=== PATIENT | female | born 1935 | race Caucasian/White ===

== ENCOUNTER 2016-09-16 12:27 | Inpatient (IN) | payer MEDICARE, BC ==
[2016-09-16] MEDS ORDERED: NITROGLYCERIN SL TABS 0.4 MG TAB SUBLINGUAL PRN (14:42)
[2016-09-16] MEDS ORDERED: HEPARIN SODIUM,PORCINE/D5W PMX 25,000 UNIT in DEXTROSE/WATER 1 500ML.BAG IV SCH (14:45)
--- NOTE | 2016-09-16 15:12 | P.HPIM ---
History of Present Illness Patient is a pleasant 81-year-old female with known history of hypertension and remote history of smoking came in with complaints of chest pressure-like sensation and shortness of breath started last night lasted for 3 hours until she was seen in [facility] and was given IV nitroglycerin and heparin, her chest pain is moderate pressure like sensation not associated diaphoresis associated shortness of breath nonradiating in the substernal area and across the chest nonpruritic in nature, not associated with food completely resolved now. Patient had an EKG which showed left bundle branch block and a negative troponin and I do not have any other EKG to compare with Will opt another EKG here patient had BNP of 350 and chronic interstitial lung changes were seen on the chest x-ray, patient denied any COPD as an have any wheeze on exam area patient had minimally elevated d-dimer although patient doesn't have any symptomatology continued consistent with pulmonary embolism. Patient denied any fevers. Patient also has sinusitis symptoms. Patient has a low-grade fever here. Patient was complaning of dry cough. Review of Systems REVIEW OF SYSTEMS: CONSTITUTIONAL: No fever, no malaise, no fatigue. HEENT: No recent visual problems or hearing problems. Denied any sore throat. CARDIOVASCULAR: No orthopnea, PND, no palpitations, no syncope. PULMONARY: no hemoptysis. GASTROINTESTINAL: No diarrhea, no nausea, no vomiting, no abdominal pain. Normoactive bowel sounds. NEUROLOGICAL: No headaches, no weakness, no numbness. HEMATOLOGICAL: Denies any bleeding or petechiae. GENITOURINARY: Denies any burning micturition, frequency, or urgency. MUSCULOSKELETAL/RHEUMATOLOGICAL: Denies any joint pain, swelling, or any muscle pain. ENDOCRINE: Denies any polyuria or polydipsia. The rest of the 14-point review of systems is negative. Physical Exam PHYSICAL EXAMINATION: GENERAL: The patient is alert and oriented x3, not in any acute distress. Well developed, well nourished. HEENT: Pupils are round and equally reacting to light. EOMI. No scleral icterus. No conjunctival pallor. Normocephalic, atraumatic. No pharyngeal erythema. No thyromegaly. CARDIOVASCULAR: S1 and S2 present. No murmurs, rubs, or gallops. PULMONARY: Chest is clear to auscultation, no wheezing or crackles. ABDOMEN: Soft, nontender, nondistended, normoactive bowel sounds. No palpable organomegaly. MUSCULOSKELETAL: No joint swelling or deformity. EXTREMITIES: No cyanosis, clubbing, or pedal edema. NEUROLOGICAL: Gross neurological examination did not reveal any focal deficits. SKIN: No rashes. Assessment and Plan Plan: 1 chest pain, rule out acute coronary syndromes: Considering her EKG findings findings I consulted cardiology and did discuss case with cardiology and is practitioner, will continue patient will continued on IV heparin until we get the next set of troponins, we'll obtain another EKG, basic metabolic profile testing will be done. Patient doesn't have any leukocytosis. After evaluation by cardiology and if they do not believe this is related to acute coronary syndromes will obtain a CT of the chest rule out any pulmonary embolism., Although my suspicion is low for that. We'll continue with IV heparin and nitro patch. Echocardiogram will be obtained #2 shortness of breath etiology is unclear can be related to acute by coronary syndromes, after that rule out PE as mentioned above. #3 hypertension 4 ALLERGIC sinusitis
[2016-09-16 15:38] LABS: Basophils % (A) 1 %; CH 30.6; CHCM 33.9; Eosinophils % (A) 1 %; HCT 39.5 % (34.0-46.0); HDW 2.45; HGB 13.6 gm/dL (11.4-16.0); Luc # (Auto) 0.13; Luc % (Auto) 2; Lymphocytes # (A) 0.5 k/uL (1.0-4.8); Lymphocytes % (A) 9 %; MCH 31.3 pg (25.0-35.0); MCHC 34.5 g/dL (31.0-37.0); MCV 90.8 fL (80.0-100.0); Mean Platelet Volume 7.1; Monocytes # (A) 0.4 k/uL (0-1.0); Monocytes % (A) 6 %; Neutrophils # (A) 4.9 k/uL (1.3-7.7); Neutrophils % (A) 82 %; RBC 4.35 m/uL (3.80-5.40); RDW 14.5 % (11.5-15.5); WBC (Perox) 6.22
--- NOTE | 2016-09-16 15:50 | XR ---
EXAMINATION TYPE: XR chest 1V DATE OF EXAM: 09/16/2016 COMPARISON: NONE INDICATION: CHF cough and congestion TECHNIQUE: Single frontal view of the chest is obtained. FINDINGS: The heart size is normal. The pulmonary vasculature is normal. No suspicious infiltrates are evident. EKG leads overlie the chest. Some degenerative changes at the right shoulder. IMPRESSION: 1. No acute pulmonary process.
[2016-09-16 16:12] LABS: Troponin I 0.034 ng/mL (0.000-0.034)
[2016-09-16 16:18] LABS: ALT 28 U/L (9-52); AST 24 U/L (14-36); Alkaline Phosphatase 93 U/L (38-126); Anion Gap 12 mmol/L; Blood Urea Nitrogen 16 mg/dL (7-17); Calcium 9.2 mg/dL (8.4-10.2); Carbon Dioxide 25 mmol/L (22-30); Chloride 101 mmol/L (98-107); Glucose 132 mg/dL (74-99); Non-African American GFR(MDRD) >60 (>60 ml/min/1.73 sqM); Potassium 4.3 mmol/L (3.5-5.1); Sodium 138 mmol/L (137-145); Total Bilirubin 0.7 mg/dL (0.2-1.3); Total Protein 6.7 g/dL (6.3-8.2)
[2016-09-16] MEDS: NITROGLYCERIN OINT 1 INCH/GM PACKET TOPICAL SCH ×2 (17:03→22:47)
[2016-09-16] MEDS: ATORVASTATIN 40 MG TAB PO SCH ×2 (21:07→21:08)
[2016-09-16] MEDS ORDERED: ONDANSETRON 4 MG/2 ML VIAL IVP PRN (21:12)
[2016-09-16 21:17] LABS: Creatine Kinase MB 0.7 ng/mL (0.0-2.4); Troponin I 0.028 ng/mL (0.000-0.034)
[2016-09-16] MEDS ORDERED: HEPARIN SODIUM,PORCINE 5,000 UNIT/ML 1 ML VIAL IV PRN (22:13)
[2016-09-17] MEDS ORDERED: ACETAMINOPHEN TAB 325 MG TAB PO PRN (00:19)
[2016-09-17 02:08] LABS: Appearance,Urine Cloudy (Clear); Bilirubin,Urine Negative (Negative); Glucose,Urine (UA) Negative (Negative); Ketones,Urine Negative (Negative); Leukocyte Esterase,Urine Negative (Negative); Mucus,Urine Rare /hpf; Nitrite,Urine Negative (Negative); PH, Urine 5.5 (5.0-8.0); Particle Count 4556; Protein,Urine 1+ (Negative); RBC,Urine 3 /hpf (0-5); Specific Gravity,Urine 1.022 (1.001-1.035); Squamous Epithelial Cell,Urine 2 /hpf (0-4); UA Billing (MACRO vs. MICRO) MICRO; Urobilinogen,Urine <2.0 mg/dL (<2.0); WBC,Urine 1 /hpf (0-5)
[2016-09-17 05:56] LABS: Basophils % (A) 0 %; CH 29.7; CHCM 33.3; Eosinophils % (A) 0 %; HCT 34.5 % (34.0-46.0); HDW 2.58; HGB 11.7 gm/dL (11.4-16.0); Luc # (Auto) 0.17; Luc % (Auto) 3; Lymphocytes # (A) 0.5 k/uL (1.0-4.8); Lymphocytes % (A) 8 %; MCH 30.3 pg (25.0-35.0); MCHC 33.9 g/dL (31.0-37.0); MCV 89.6 fL (80.0-100.0); Mean Platelet Volume 6.7; Monocytes # (A) 0.3 k/uL (0-1.0); Monocytes % (A) 5 %; Neutrophils # (A) 5.1 k/uL (1.3-7.7); Neutrophils % (A) 84 %; RBC 3.86 m/uL (3.80-5.40); RDW 13.3 % (11.5-15.5); WBC 6.1 k/uL (3.8-10.6); WBC (Perox) 6.37
[2016-09-17 06:13] LABS: Cholesterol 218 mg/dL (<200); HDL Cholesterol 48 mg/dL (40-60); Triglycerides 197 mg/dL (<150)
[2016-09-17] MEDS: NITROGLYCERIN OINT 1 INCH/GM PACKET TOPICAL SCH ×4 (06:33→23:01)
--- NOTE | 2016-09-17 08:14 | XR ---
EXAMINATION TYPE: XR chest 2V DATE OF EXAM: 09/17/2016 COMPARISON: 09/16/2016 HISTORY: Shortness of breath TECHNIQUE: Frontal and lateral views of the chest are obtained. FINDINGS: Scattered senescent parenchymal changes noted. Hyperinflation compatible with COPD. No evidence for infiltrate. No evidence for atelectasis. Heart size is stable. Mediastinal structures are stable and grossly unremarkable. No evidence for hilar prominence. Degenerative changes dorsal spine. IMPRESSION: 1. No evidence for acute pulmonary disease.
[2016-09-17] MEDS ORDERED: ASPIRIN 325 MG TAB PO SCH (09:00)
[2016-09-17] MEDS ORDERED: RX INFO: IV CONTRAST WAS GIVEN 1 EACH MISC MISCELLANE PRN ×2 (09:35→23:46)
[2016-09-17] MEDS ORDERED: HYDROmorphone 1 MG/ML 1 ML SYRINGE IVP PRN (09:50)
[2016-09-17] MEDS: IPRATROPIUM-ALBUTEROL 3 ML NEB INHALATION SCH ×3 (09:58→19:52)
--- NOTE | 2016-09-17 09:58 | CONS ---
CHIEF COMPLAINT: Cough, shortness of breath and lower abdominal discomfort. This is an 81 year old lady comes in to the hospital with symptoms of recurrent cough, shortness of breath and sputum. This has been going on for the last several days. She had chest pressure and felt unwell for about three hours prior to coming to the hospital. She is sent in with a diagnosis of unstable angina. Her EKG shows sinus rhythm with left bundle branch block. Troponins have been negative. She has elevated D. dimer. At the time of my evaluation, she is much better and her predominant symptom is left lower quadrant discomfort probably related to recurrent coughing. Chest x-ray did not reveal any pulmonary disease. The patient will have a CT to rule out pulmonary embolism. Cardiac enzymes have been negative. BNP is normal at 364. Past medical history is significant for hypertension, hyperthyroidism. Medications include: 1. [place]-3. 2. Synthroid. 3. Norvasc. 4. Vitamin D. ALLERGIES: There are no known drug allergies. Family history is negative for premature coronary artery disease. Social history is significant for smoking that she quit a few years ago. Review of systems: HEENT: Unremarkable. Cardiac as described above. Respiratory as described above. GI significant for left lower quadrant pain. : Negative. Musculoskeletal significant for arthritis. Psych/social: Negative. Endocrine: Negative. Dermatological: Negative. Constitutional: Negative. Oncological: Negative. The rest of the system review is not relevant. On exam, comfortable at rest. Her T-max is 101. Heart rate is 94 beats a minute. Blood pressure is 140/54. Respiratory rate is 18. O2 sat is 96% on 2 L. There is no jugular venous distention. Carotid upstroke is normal. There is no bruit. Chest exam reveals bilateral rhonchi. Heart exam first and second heart sounds. No gallop. Has a systolic murmur in the left lower sternal border. Abdomen is soft, nontender. Examination of the extremities did not reveal any edema. Peripheral pulses are felt. ASSESSMENT: 1. Acute bronchitis. 2. Chest pain, myocardial infarction ruled out. 3. Elevated D. dimer. PLAN: The patient is looking better. I am going to stop the IV heparin. I will obtain a CT chest to rule out pulmonary embolism. I will give her breathing treatments, obtain a 2 D echo to document her LV function. When her respiratory status stabilizes, she will be discharged home and will have an outpatient stress test. I am going to follow her with you throughout this hospitalization. NATALI
--- NOTE | 2016-09-17 10:58 | ECHOF ---
Referral Reason:ACS MEASUREMENTS -------- HEIGHT: 160.0 cm WEIGHT: 78.5 kg BP: RVIDd: 2.0 cm (< 3.3) IVSd: 1.1 cm (0.6 - 1.1) LVIDd: 5.0 cm (3.9 - 5.3) LVPWd: 1.2 cm (0.6 - 1.1) IVSs: 1.7 cm LVIDs: 3.5 cm LVPWs: 1.6 cm LA Diam: 3.9 cm (2.7 - 3.8) LAESV Index (A-L): 35.26 ml/m Ao Diam: 3.0 cm (2.0 - 3.7) AV Cusp: 1.8 cm (1.5 - 2.6) MV EXCURSION: 10.412 mm (> 18.000) MV EF SLOPE: 60 mm/s (70 - 150) EPSS: 0.9 cm MV E Shady: 0.84 m/s MV DecT: 126 ms MV A Shady: 1.38 m/s MV E/A Ratio: 0.61 AV maxP.64 mmHg AV meanP.75 mmHg RAP: 5.00 mmHg RVSP: 41.07 mmHg FINDINGS -------- Sinus rhythm. This was a technically difficult study with suboptimal parasternal views. The left ventricular size is normal. There is borderline concentric left ventricular hypertrophy. Overall left ventricular systolic function is normal with, an EF between 55 - 60 %. The right ventricle is normal in size. LA is moderately dilated 34-39 ml/m2 The right atrium is normal in size. Aortic valve is trileaflet and is moderately thickened. There is mild aortic stenosis present. Peak/mean gradient across the Aortic Valve is 27.64mmHg / 17.75mmHg. Moderate mitral annular calcification present. Tdwzoyhp-[id number]-[id number] mitral regurgitation is present. Mild tricuspid regurgitation present. There is no pulmonic regurgitation present. The aortic root size is normal. Normal inferior vena cava with normal inspiratory collapse consistent with estimated right atrial pressure of 5 mmHg. There is no pericardial effusion. CONCLUSIONS -------- 1. Sinus rhythm. 2. Jggkzpjd-mj-hjofsr mitral regurgitation is present. 3. Mild tricuspid regurgitation present. 4. There is no pulmonic regurgitation present. 5. The aortic root size is normal. 6. Normal inferior vena cava with normal inspiratory collapse consistent with estimated right atrial pressure of 5 mmHg. 7. There is no pericardial effusion. 8. This was a technically difficult study with suboptimal parasternal views. 9. There is borderline concentric left ventricular hypertrophy. 10. Overall left ventricular systolic function is normal with, an EF between 55 - 60 %. 11. LA is moderately dilated 34-39 ml/m2 12. Aortic valve is trileaflet and is moderately thickened. 13. There is mild aortic stenosis present. 14. Peak/mean gradient across the Aortic Valve is 27.64mmHg / 17.75mmHg. 15. Moderate mitral annular calcification present. LEAD QUALITY CONTROL TECHNICIAN: Perla Byrd RDCS
--- NOTE | 2016-09-17 11:05 | CT ---
EXAMINATION TYPE: CT angio chest DATE OF EXAM: 09/17/2016 COMPARISON: NONE HISTORY: PE, elevated d dimer CT DLP: 844.6 mGycm CONTRAST: CT chest with contrast and 3D reconstruction with MIP imaging is performed with IV Contrast, patient injected with 125 mL of Omnipaque 350. Contrast-enhanced CT of the chest was performed through the course of the pulmonary arteries with katerina g and mediastinal window settings submitted. 3D reconstruction with MIP imaging was also performed. PULMONARY ARTERIES: The pulmonary arteries and their major tributaries are patent. I do not see carlton dence for sizable filling defect to suggest pulmonary embolic process. LUNGS: The lungs are clear and free of infiltrate. No evidence for atelectasis. No pulmonary nodule or mass is detected. No pleural effusion. MEDIASTINUM: Thoracic aorta is of normal caliber . The heart is mildly enlarged. No evidence for me diastinal mass. No mediastinal lymph nodes greater than 1cm. HILAR STRUCTURES: No evidence for mass. No hilar lymph nodes greater than 1 cm. UPPER ABDOMEN: No significant abnormality is seen. IMPRESSION: 1. No evidence for Pulmonary embolism at this time.
[2016-09-17] MEDS ORDERED: HYDROmorphone 1 MG/ML 1 ML SYRINGE IVP STA (11:21)
--- NOTE | 2016-09-17 11:45 | CT ---
EXAMINATION TYPE: CT angio thoracic/abd aorta DATE OF EXAM: 09/17/2016 COMPARISON: NONE HISTORY: LLQ pain, known AAA CT DLP: 1377 mGycm CONTRAST: CTA thoracic and abdominal aorta with 3-D reconstruction is performed and without and with IV Contras t, patient injected with 125 mL of Omnipaque 350. Contrast CTA of the thoracic and abdominal aorta was performed from the lung apex through the base of the pelvis. 3-D reconstruction imaging obtained at a separate workstation. CT Chest: THORACIC AORTA: There is no evidence for aneurysm. No dissection or mediastinal hematoma. Mild ath eromatous changes are seen. LUNGS: The lungs are clear and free of infiltrate or atelectasis. No pulmonary nodule or mass is det ected. No pleural effusion or CT evidence of interstitial lung disease. MEDIASTINUM: The heart is not enlarged. No evidence for mediastinal mass or adenopathy. HILAR STRUCTURES: No evidence for mass. No hilar adenopathy is appreciated. OTHER: No significant abnormality. CONTRAST CT ABDOMEN AND PELVIS ABDOMINAL AORTA: MILD INFRARENAL ABDOMINAL AORTIC ANEURYSM MEASURES 3.1 CM. ATHEROMATOUS CHANGES SEEN . BRANCH VESSELS ARE PATENT AT THIS TIME. No dissection. Iliac vessels are symmetric and patent. LIVER/GB-soft gallstone versus polyp noted. Mild fatty liver.The liver is unremarkable otherwise. PANCREAS- No significant abnormality is seen. SPLEEN- No significant abnormality is seen. ADRENALS- No significant abnormality is seen. KIDNEYS/BLADDER- No significant abnormality is seen. BOWEL- No Significant abnormality GENITAL ORGANS: No gross abnormality seen. LYMPH NODES- No greater than 1cm abdominal or pelvic lymph nodes areappreciated. OSSEOUS STRUCTURES- No significant abnormality is seen. OTHER-there is a large hemorrhage noted to involve the left lateral abdominal wall musculature which extends 21.4 cm craniocaudal dimension. Its lateral component is partially cut off the [id number]. Mild enhancement is noted within the hemorrhage on the postcontrast portion of the study. IMPRESSION- 1.large hemorrhage noted to involve the left lateral abdominal wall musculature which extends 21.4 cm craniocaudal dimension. Its lateral component is partially cut off the [id number] but measures at least 6.8 cm in transverse dimension. 2.. Mild intra-abdominal aortic aneurysm. No evidence for dissection. Thoracic aorta is of normal michelle iber. 3. Soft gallstone versus polyp.
[2016-09-17 12:49] LABS: Basophils % (A) 0 %; CH 30.6; CHCM 33.9; Eosinophils % (A) 0 %; HCT 30.4 % (34.0-46.0); HDW 2.64; HGB 10.3 gm/dL (11.4-16.0); Luc % (Auto) 1; Lymphocytes # (A) 0.4 k/uL (1.0-4.8); Lymphocytes % (A) 6 %; MCH 30.7 pg (25.0-35.0); MCHC 33.9 g/dL (31.0-37.0); MCV 90.4 fL (80.0-100.0); Mean Platelet Volume 7.3; Monocytes # (A) 0.2 k/uL (0-1.0); Monocytes % (A) 3 %; Neutrophils # (A) 6.5 k/uL (1.3-7.7); Neutrophils % (A) 90 %; RBC 3.36 m/uL (3.80-5.40); RDW 13.8 % (11.5-15.5); WBC 7.3 k/uL (3.8-10.6); WBC (Perox) 7.65
--- NOTE | 2016-09-17 12:57 | CONS ---
ADDENDUM: This is an 81 year old lady who was transferred from [place] following her initial presentation there with symptoms of cough, shortness of breath and was sent in with unstable angina. The patient had a CT scan of the chest that was negative for pulmonary embolism. She was complaining of left lower quadrant discomfort that I initially thought was related to sprain within the abdominal wall muscle with recurrent cough. however, this discomfort has worsened and extended. A CT scan shows abdominal wall hematoma. The patient's heparin was stopped after my initial evaluation. The patient currently is symptomatic therapy. I am going to stop the subcu heparin also at this time. The patient had a CT scan of the thoracic aorta that showed mild intraabdominal aortic aneurysm but a large lateral abdominal wall hematoma that measures about [address] [facility] [place]
[2016-09-17] MEDS ORDERED: traMADol 50 MG TAB PO SCH (13:00)
[2016-09-17] MEDS: HYDROcodone/APAP 5-325MG 1 EACH TAB PO PRN ×2 (13:04→19:23)
--- NOTE | 2016-09-17 15:42 | P.GSCN ---
History of Present Illness Consult date: 09/17/16 Reason for Consult: Left flank hematoma Requesting physician: Pablito Otoole History of present illness: 81 years old female presented with chest pain and shortness of breath from [facility] on 09/16/16. Differential diagnosis included pulmonary embolism and she was started on IV heparin . Patient experienced severe bout of cough and then noticed an expanding bruise in the left flank. She has some pain in the area which is mild. Denies any nausea or vomiting. She also has left lower quadrant pain, 5 out of 10, intermittent in nature. She had last bowel movement 2 days ago. She is passing flatus. Shortness of breath has now resolved. Patient lives by herself and uses cane and wheelchair for ambulation. CT chest and abdomen and pelvis with IV contrast performed. I reviewed the films. No evidence of PE. Large left flank hematoma which measures more than 20 cm. No active contrast extravasation seen. No compression of colon or adjacent organ seen Review of Systems Constitutional: Denies fever, weight loss or loss of appetite HEENT: No difficulty in vision , hearing. Denies dysphagia. Cardiovascular:Denies chest pain, palpitations, dizziness, shortness of breath. Respiratory: No cough. SOB resolved Gastrointestinal: No recent change in bowel habits, no abdominal pain, no nausea or vomiting. Last colonoscopy 10 yrs ago Integumentary: Multiple skin bruises Genitourinary: No urinary incontinence, hematuria or dysuria Neurologic: No seizures, denies weakness in upper or lower extremities Musculoskeletal: Has back and knee pain. Psychiatry: No history of depression, no suicidal ideation, no anxiety or psychosis Past Medical History Past Medical History: Cancer, GERD/Reflux, Hyperlipidemia, Hypertension, Sleep Apnea/CPAP/BIPAP, Thyroid Disorder Additional Past Medical History / Comment(s): shingles within last 5 years, "intermittent ankle swelling", AAA unsure of size, diverticular disease(had sx) , sleep apnea has cpap but does'nt use it. psoriases, "psoriatic arthritis", past fx's to lt armx2,lt hand,lt ankle all just casted. broken tail bone had sx. , past benign brain and ovarian tumors. 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 History of Any Multi-Drug Resistant Organisms: None Reported Past Surgical History: Bowel Resection, Hysterectomy, Tonsillectomy Additional Past Surgical History / Comment(s): brain and ovarian tumors removed both benign, rt hip replacements x4, nena cataracts,"rt eye sx for ?hole", multiple skin cancer lesions removed.,lt shoulder spurs removed, nena carpal tunnel. "approx 2002 after hip sx had staph infection but never told if it was mrsa or not" Past Anesthesia/Blood Transfusion Reactions: No Reported Reaction Smoking Status: Former smoker - Past Family History Father Family Medical History: Diabetes Mellitus, Myocardial Infarction ([place]) Additional Family Medical History / Comment(s): embollism- age 79 Mother Family Medical History: Diabetes Mellitus, Myocardial Infarction ([place]) Additional Family Medical History / Comment(s): age 74 Medications and Allergies Home Medications Medication Instructions Recorded Confirmed Type Cholecalciferol [Vitamin D3] 1,000 unit PO DAILY 09/16/16 09/16/16 History Levothyroxine Sodium [Synthroid] 175 mcg PO DAILY 09/16/16 09/16/16 History Magnesium 200 mg PO DAILY 09/16/16 09/16/16 History [place]-3 Fatty Acids [[place]-3] 1 cap PO DAILY 09/16/16 09/16/16 History amLODIPine [Norvasc] 2.5 mg PO DAILY 09/16/16 09/16/16 History Allergies Allergy/AdvReac Type Severity Reaction Status Date / Time No Known Allergies Allergy Unverified 09/16/16 15:34 Surgical - Exam Vital Signs Temp Pulse Resp BP Pulse Ox 98.9 F 99 18 170/76 97 09/16/16 15:00 09/16/16 15:00 09/16/16 15:00 09/16/16 15:00 09/16/16 15:00 General: Patient is alert and oriented to time, place and person and cooperative with exam. HEENT: No pallor, no icterus, no thyroid enlargement, no cervical lymphadenopathy. Chest: Bilateral equal breath sounds present. No wheezes, no crackles. Cardiovascular: Regular rate and rhythm. Abdomen: Soft, nondistended. Mild left lower quadrant tenderness. No peritonitis. Left flank ecchymosis. Areas marked. Integumentary: Ecchymosis in upper extremity. No active ulcers or discharge. Neurologic: Cranial nerves II-XII intact. Strength upper and lower extremities 5/5. No focal neurologic deficits. Psychiatric: No anxiety or psychosis. Results - Labs 09/17/16 12:14 09/16/16 15:17 Abnormal Lab Results - Last 24 Hours (Table) 09/16/16 09/16/16 09/16/16 Range/Units 15:17 15:17 15:17 RBC (3.80-5.40) m/uL Hgb (11.4-16.0) gm/dL Hct (34.0-46.0) % Lymphocytes # 0.5 L (1.0-4.8) k/uL APTT (22.0-30.0) sec Glucose 132 H (74-99) mg/dL Total Creatine Kinase 258 H (30-135) U/L Triglycerides (<150) mg/dL Cholesterol (<200) mg/dL LDL Cholesterol, Calc (0-99) mg/dL Urine Appearance (Clear) Urine Protein (Negative) Urine Blood (Negative) Urine Mucus (None) /hpf 09/16/16 09/17/16 09/17/16 Range/Units 20:35 01:50 05:31 RBC (3.80-5.40) m/uL Hgb (11.4-16.0) gm/dL Hct (34.0-46.0) % Lymphocytes # (1.0-4.8) k/uL APTT (22.0-30.0) sec Glucose (74-99) mg/dL Total Creatine Kinase 287 H (30-135) U/L Triglycerides 197 H (<150) mg/dL Cholesterol 218 H (<200) mg/dL LDL Cholesterol, Calc 131 H (0-99) mg/dL Urine Appearance Cloudy H (Clear) Urine Protein 1+ H (Negative) Urine Blood Moderate H (Negative) Urine Mucus Rare H (None) /hpf 09/17/16 09/17/16 09/17/16 Range/Units 05:31 05:31 12:14 RBC 3.36 L (3.80-5.40) m/uL Hgb 10.3 L (11.4-16.0) gm/dL Hct 30.4 L (34.0-46.0) % Lymphocytes # 0.5 L 0.4 L (1.0-4.8) k/uL APTT 62.5 H (22.0-30.0) sec Glucose (74-99) mg/dL Total Creatine Kinase (30-135) U/L Triglycerides (<150) mg/dL Cholesterol (<200) mg/dL LDL Cholesterol, Calc (0-99) mg/dL Urine Appearance (Clear) Urine Protein (Negative) Urine Blood (Negative) Urine Mucus (None) /hpf Microbiology - Last 24 Hours (Table) 09/17/16 01:50 Urine Culture - Preliminary Urine,Voided Diabetes panel 09/16/16 09/17/16 Range/Units 15:17 05:31 Sodium 138 (137-145) mmol/L Potassium 4.3 (3.5-5.1) mmol/L Chloride 101 (98-107) mmol/L Carbon Dioxide 25 (22-30) mmol/L BUN 16 (7-17) mg/dL Creatinine 0.80 (0.52-1.04) mg/dL Glucose 132 H (74-99) mg/dL Calcium 9.2 (8.4-10.2) mg/dL AST 24 (14-36) U/L ALT 28 (9-52) U/L Alkaline Phosphatase 93 (38-126) U/L Total Protein 6.7 (6.3-8.2) g/dL Albumin 3.9 (3.5-5.0) g/dL Triglycerides 197 H (<150) mg/dL HDL Cholesterol 48 (40-60) mg/dL Thyroid panel 09/16/16 Range/Units 15:17 TSH 2.860 (0.465-4.680) mIU/L Calcium panel 09/16/16 Range/Units 15:17 Calcium 9.2 (8.4-10.2) mg/dL Albumin 3.9 (3.5-5.0) g/dL Pituitary panel 09/16/16 Range/Units 15:17 Sodium 138 (137-145) mmol/L Potassium 4.3 (3.5-5.1) mmol/L Chloride 101 (98-107) mmol/L Carbon Dioxide 25 (22-30) mmol/L BUN 16 (7-17) mg/dL Creatinine 0.80 (0.52-1.04) mg/dL Glucose 132 H (74-99) mg/dL Calcium 9.2 (8.4-10.2) mg/dL TSH 2.860 (0.465-4.680) mIU/L Adrenal panel 09/16/16 Range/Units 15:17 Sodium 138 (137-145) mmol/L Potassium 4.3 (3.5-5.1) mmol/L Chloride 101 (98-107) mmol/L Carbon Dioxide 25 (22-30) mmol/L BUN 16 (7-17) mg/dL Creatinine 0.80 (0.52-1.04) mg/dL Glucose 132 H (74-99) mg/dL Calcium 9.2 (8.4-10.2) mg/dL Total Bilirubin 0.7 (0.2-1.3) mg/dL AST 24 (14-36) U/L ALT 28 (9-52) U/L Alkaline Phosphatase 93 (38-126) U/L Total Protein 6.7 (6.3-8.2) g/dL Albumin 3.9 (3.5-5.0) g/dL - Imaging CT scan - abdomen: image reviewed (Large left flank hematoma. No active extravasation seen.) CT scan - chest: image reviewed (No PE) Assessment and Plan (1) Hematoma of left flank Status: Acute (2) Hypertension Status: Acute (3) Hypothyroidism Status: Acute Plan: 1. Ok to start diet from surgical standpoint 2. No surgical intervention regarding the left flank hematoma. Most likely resulted from vigorous coughing and anticoagulation 3. Monitor Hb every 12 hrs . 4. Abdominal binder for support
--- NOTE | 2016-09-17 16:26 | P.PN ---
Subjective Date of service 09/17/2016. Progress note being dictated for Dr. Otoole Interval history: Patient is a pleasant 81-year-old female with known history of hypertension and remote history of smoking came in with complaints of chest pressure-like sensation and shortness of breath started last night lasted for 3 hours until she was seen in [facility] and was given IV nitroglycerin and heparin, her chest pain is moderate pressure like sensation not associated diaphoresis associated shortness of breath nonradiating in the substernal area and across the chest nonpruritic in nature, not associated with food completely resolved now. Patient had an EKG which showed left bundle branch block and a negative troponin and I do not have any other EKG to compare with Will opt another EKG here patient had BNP of 350 and chronic interstitial lung changes were seen on the chest x-ray, patient denied any COPD as an have any wheeze on exam area patient had minimally elevated d-dimer although patient doesn't have any symptomatology continued consistent with pulmonary embolism. Patient denied any fevers. Patient also has sinusitis symptoms. Patient has a low- grade fever here. Patient was complaning of dry cough. 09/17/2016: Breathing improving, CT negative for PE. Patient states had coughing spell and now complaining of abdominal pain, initially started with left groin, radiating up to under left rib cage accompanied by left flank bruise , tender. No nausea or vomiting. No diarrhea. Last bowel movement 2 days ago.Abdomen and Pelvis CT results Pending. Objective - Vital Signs Vital signs: Vital Signs Temp 98.3 F 09/17/16 08:40 Pulse 95 09/17/16 10:58 Resp 18 09/17/16 09:30 BP 169/72 09/17/16 10:58 Pulse Ox 92 L 09/17/16 09:30 Intake & Output 09/16/16 09/17/16 09/17/16 18:59 06:59 18:59 Intake Total 120 100.273 21.1 Output Total 150 Balance 120 -49.727 21.1 Weight 70.45 kg 77.5 kg Intake: Intake, IV Titration 100.273 21.1 Amount Heparin Sodium,Porcine/ 100.273 21.1 D5w Pmx 25,000 unit In Dextrose/Water 1 500ml. bag @ 12 UNITS/KG/HR 16.9 mls/hr IV .Q24H IVÁN Rx#: [id number] Oral 120 Output: Urine 150 Other: Voiding Method Toilet Toilet Toilet Bedside Commode Bedside Commode Bedside Commode # Voids 2 1 1 # Bowel Movements 0 - Exam GENERAL: Sitting up in bed, alert and oriented x3, tired appearing. HEENT: Pupils are round and equally reacting to light. EOMI. No scleral icterus. No conjunctival pallor. Normocephalic, atraumatic. No pharyngeal erythema. No thyromegaly. CARDIOVASCULAR: S1 and S2 present. No murmurs, rubs, or gallops. PULMONARY: Chest is clear to auscultation, no wheezing or crackles. ABDOMEN: Soft, tender left upper quadrant and left flank bruise, nondistended, normoactive bowel sounds. guarding left rib cage. MUSCULOSKELETAL: No joint swelling or deformity. EXTREMITIES: No cyanosis, clubbing, or pedal edema. NEUROLOGICAL: Gross neurological examination did not reveal any focal deficits. SKIN: No rashes. - Labs CBC & Chem 7: 09/17/16 12:14 09/16/16 15:17 Labs: Abnormal Lab Results - Last 24 Hours (Table) 09/16/16 09/16/16 09/16/16 Range/Units 15:17 15:17 15:17 Lymphocytes # 0.5 L (1.0-4.8) k/uL APTT (22.0-30.0) sec Glucose 132 H (74-99) mg/dL Total Creatine Kinase 258 H (30-135) U/L Triglycerides (<150) mg/dL Cholesterol (<200) mg/dL LDL Cholesterol, Calc (0-99) mg/dL Urine Appearance (Clear) Urine Protein (Negative) Urine Blood (Negative) Urine Mucus (None) /hpf 09/16/16 09/17/16 09/17/16 Range/Units 20:35 01:50 05:31 Lymphocytes # (1.0-4.8) k/uL APTT (22.0-30.0) sec Glucose (74-99) mg/dL Total Creatine Kinase 287 H (30-135) U/L Triglycerides 197 H (<150) mg/dL Cholesterol 218 H (<200) mg/dL LDL Cholesterol, Calc 131 H (0-99) mg/dL Urine Appearance Cloudy H (Clear) Urine Protein 1+ H (Negative) Urine Blood Moderate H (Negative) Urine Mucus Rare H (None) /hpf 09/17/16 09/17/16 Range/Units 05:31 05:31 Lymphocytes # 0.5 L (1.0-4.8) k/uL APTT 62.5 H (22.0-30.0) sec Glucose (74-99) mg/dL Total Creatine Kinase (30-135) U/L Triglycerides (<150) mg/dL Cholesterol (<200) mg/dL LDL Cholesterol, Calc (0-99) mg/dL Urine Appearance (Clear) Urine Protein (Negative) Urine Blood (Negative) Urine Mucus (None) /hpf Assessment and Plan Plan: 1 chest pain, rule out acute coronary syndrome #2 shortness of breath etiology unclear can be related to acute by coronary syndrome, rule out PE #3 hypertension 4 ALLERGIC sinusitis #5 new-onset left upper quadrant abdominal pain, CT results pending. Plan: Continue on current medication regime ,monitoring and symptomatic treatment. CT abdomen and pelvis pending. Surgical consult pending results of CT. Close monitoring of CBC, electrolytes with repeat labs ordered for a.m. Further recommendations to follow. The impression and plan of care has been dictated as directed as a scribe. : I performed a H&P examination of this patient and discussed the same with the dictator. I agree with the dictator's note. Any additional findings/opinions/ etc. will be noted.
[2016-09-17] MEDS ORDERED: traMADol 50 MG TAB PO PRN (17:18)
[2016-09-17] MEDS: ATORVASTATIN 40 MG TAB PO SCH (19:30)
[2016-09-17] MEDS ORDERED: HEPARIN SODIUM,PORCINE 5,000 UNIT/ML 1 ML VIAL SQ SCH (21:00)
[2016-09-17 23:17] LABS: Glucose,Whole Blood 284 mg/dL (75-99)
[2016-09-17] MEDS ORDERED: SODIUM CHLORIDE 0.9% 250 ML IV ONE (23:24)
[2016-09-17 23:25] VITALS: TEMP 97.5
[2016-09-17 23:36] LABS: Basophils % (A) 1 %; CH 30.6; Eosinophils % (A) 0 %; HCT 26.1 % (34.0-46.0); HGB 9.1 gm/dL (11.4-16.0); Luc # (Auto) 0.18; Luc % (Auto) 3; Lymphocytes # (A) 1.1 k/uL (1.0-4.8); Lymphocytes % (A) 19 %; MCH 31.5 pg (25.0-35.0); MCHC 34.8 g/dL (31.0-37.0); MCV 90.4 fL (80.0-100.0); Mean Platelet Volume 7.7; Monocytes # (A) 0.4 k/uL (0-1.0); Monocytes % (A) 7 %; Neutrophils # (A) 4.2 k/uL (1.3-7.7); Neutrophils % (A) 70 %; RBC 2.89 m/uL (3.80-5.40); RDW 13.9 % (11.5-15.5); WBC (Perox) 6.04
[2016-09-17 23:41] LABS: Prothrombin Time 9.9 sec (9.0-12.0)
[2016-09-17 23:43] LABS: Potassium 4.2 mmol/L (3.5-5.1); Total Bilirubin 0.5 mg/dL (0.2-1.3); Total Protein 5.3 g/dL (6.3-8.2)
[2016-09-18 00:34] VITALS: RESP 18
[2016-09-18 01:16] VITALS: BP 115/56; PULSE 93
--- NOTE | 2016-10-01 17:28 | P.DS ---
Providers Date of admission: 09/16/16 14:20 Attending physician: Pablito Otoole Consults: 09/16/16 14:43 Consult Physician Urgent Consulting Provider: Esvin Bryant Consult Reason/Comments: LBBB and chest pain Do you want consulting provider notified?: Yes 09/17/16 12:57 Consult Physician Urgent Consulting Provider: Marcia Orozco Consult Reason/Comments: Left abdominal hematoma Do you want consulting provider notified?: Yes Primary care physician: Stated None Hospital Course: Please refer to the progress note for further details patient had a large hematoma and patient was later evaluated by surgery and they recommended transfer to outside visiting and patient was subsequently transferred. Plan - Discharge Summary New Discharge Prescriptions: No Action Cholecalciferol [Vitamin D3] 1,000 unit PO DAILY amLODIPine [Norvasc] 2.5 mg PO DAILY Caney-3 Fatty Acids [Caney-3] 1 cap PO DAILY Magnesium 200 mg PO DAILY Levothyroxine Sodium [Synthroid] 175 mcg PO DAILY Discharge Medication List Cholecalciferol [Vitamin D3] 1,000 unit PO DAILY 09/16/16 [History] Levothyroxine Sodium [Synthroid] 175 mcg PO DAILY 09/16/16 [History] Magnesium 200 mg PO DAILY 09/16/16 [History] Caney-3 Fatty Acids [Caney-3] 1 cap PO DAILY 09/16/16 [History] amLODIPine [Norvasc] 2.5 mg PO DAILY 09/16/16 [History] Discharge Disposition: OTHER INSTITUTION NOT DEFINED
== END 2016-09-18 02:56 | disposition other institution (70) | DRG 313 ==
LOC: 6SEL 14:20
PROVIDERS: ADMIT Internal Medicine; ATTEND Internal Medicine
DX: R07.89 Other chest pain (principal); I44.7 Left bundle-branch block, unspecified; L40.50 Arthropathic psoriasis, unspecified; S30.1XXA Contusion of abdominal wall, initial encounter; J20.9 Acute bronchitis, unspecified; I10 Essential (primary) hypertension; E03.9 Hypothyroidism, unspecified; I71.4 Abdominal aortic aneurysm, without rupture; E78.5 Hyperlipidemia, unspecified; G47.30 Sleep apnea, unspecified; J30.9 Allergic rhinitis, unspecified; K21.9 Gastro-esophageal reflux disease without esophagitis; K57.90 Diverticulosis of intestine, part unspecified, without perforation or abscess without bleeding; Z87.891 Personal history of nicotine dependence; Z79.899 Other long term (current) drug therapy; Z85.828 Personal history of other malignant neoplasm of skin; Z82.49 Family history of ischemic heart disease and other diseases of the circulatory system
CPT/HCPCS: 71010; 71020; 71275; 75635; 80053; 80061; 81001; 82550; 82553; 84443; 84484; 85025; 85610; 85730; 87040; 87086; 93306; 94640; 94760

== ENCOUNTER 2016-10-06 19:05 | Inpatient (IN) | payer MEDICARE, BC ==
[2016-10-06] MEDS ORDERED: ACETAMINOPHEN TAB 325 MG TAB PO PRN (21:34)
[2016-10-06 22:05] VITALS: RESP 16; BMI 28.8
[2016-10-06] MEDS: NITROGLYCERIN OINT 1 INCH/GM PACKET TOPICAL SCH (23:51)
[2016-10-06] MEDS: SODIUM CHLORIDE 0.9% 1,000 ML IV SCH (23:52)
[2016-10-07 04:37] LABS: Anisocytosis Slight; Basophils % (A) 1 %; CH 29.8; CHCM 31.3; Eosinophils # (A) 0.1 k/uL (0-0.7); Eosinophils % (A) 2 %; HCT 24.9 % (34.0-46.0); HDW 3.68; HGB 7.9 gm/dL (11.4-16.0); Hypochromasia Moderate; Luc # (Auto) 0.08; Luc % (Auto) 2; Lymphocytes # (A) 0.8 k/uL (1.0-4.8); Lymphocytes % (A) 25 %; MCH 30.4 pg (25.0-35.0); MCHC 31.7 g/dL (31.0-37.0); Macrocytosis Slight; Mean Platelet Volume 8.4; Monocytes # (A) 0.3 k/uL (0-1.0); Monocytes % (A) 9 %; Neutrophils # (A) 2.1 k/uL (1.3-7.7); Neutrophils % (A) 61 %; Poikilocytosis Slight; RBC 2.59 m/uL (3.80-5.40); RDW 17.6 % (11.5-15.5); WBC 3.3 k/uL (3.8-10.6)
[2016-10-07 04:42] LABS: MCV 96.1 fL (80.0-100.0)
[2016-10-07 04:46] LABS: Anion Gap 4 mmol/L; Blood Urea Nitrogen 22 mg/dL (7-17); Calcium 8.1 mg/dL (8.4-10.2); Carbon Dioxide 28 mmol/L (22-30); Chloride 110 mmol/L (98-107); Glucose 117 mg/dL (74-99); Magnesium 1.7 mg/dL (1.6-2.3); Non-African American GFR(MDRD) 52 (>60 ml/min/1.73 sqM); Phosphorous 4.2 mg/dL (2.5-4.5); Potassium 3.7 mmol/L (3.5-5.1); Sodium 142 mmol/L (137-145)
[2016-10-07 04:49] LABS: Partial Thromboplastin Time 22.7 sec (22.0-30.0); Prothrombin Time 10.2 sec (9.0-12.0)
[2016-10-07] MEDS: NITROGLYCERIN OINT 1 INCH/GM PACKET TOPICAL SCH (06:32)
[2016-10-07] MEDS ORDERED: ASPIRIN 81 MG CHEW PO SCH (09:00)
--- NOTE | 2016-10-07 09:17 | P.CRDCN ---
History of Present Illness Consult date: 10/07/16 Requesting physician: Derrick Dimas Reason for Consult (text): Abnormal troponin Chief complaint: Shortness of breath History of present illness: This is a pleasant 81-year-old female with history of hypertension, hypothyroidism, she also has recent history of left-sided flank hematoma which developed in August of this year. She was in the hospital, was being anticoagulated for possible pulmonary embolism. She had a significant amount of coughing and developed a hematoma. She was transferred to [facility], received 5 units of blood transfusion, and was at [facility] for [facility]. Patient states that she became short of breath, and has been short of breath since that time with minimal exertion. She woke up the other morning and states she could hardly breathe at all, therefore went to [facility] for further evaluation. CAT scan of the chest was performed which did not reveal any significant findings. CT of the abdomen and pelvis was also performed which revealed subacute intramuscular hematoma in the left lateral abdominal wall measuring 4.1118.4. Left retroperitoneal hematoma extending from the lower pole of the left kidney to the mid left iliac wing just anterior to the left iliac as muscle. Patient also states she's been noticing significant blood in her urine. EKG performed there shows a normal sinus rhythm with a left bundle-branch block pattern and nonspecific ST-T wave changes. Patient was also found to have a temperature of 102. She did have an echocardiogram with Doppler study performed which revealed an ejection of 55-60% . Hemoglobin there was 10.0, hematocrit 30.2, BUN 18, creatinine 0.8, potassium 4.1. Urinalysis showed a large amount of blood in the urine. Repeat hemoglobin at [facility] 8.1. Troponin 0.418. Because of the abnormal troponin patient was transferred here to [facility] for further evaluation. EKG performed here showed a normal sinus rhythm with a left bundle-branch block pattern is nonspecific ST-T wave changes. EMILIA globin here 7.9, white blood cell count 3.3, platelet count 140. Potassium 3.7, BUN 22, creatinine 1.0. Troponins 0.5, 0.3. Magnesium 1.2. Blood pressure 126/70, heart rate in the 80s, 99% on room air. At the time of my examination this morning, her main complaint is that of feeling weak. She denies having any chest discomfort at any time. We will discontinue her Nitropaste. Patient did have an echocardiogram with Doppler study performed last month which revealed moderate to severe mitral regurgitation, ejection fraction 55-60%. Mild aortic stenosis. Past Medical History Past Medical History: Cancer, GERD/Reflux, Hyperlipidemia, Hypertension, Sleep Apnea/CPAP/BIPAP, Thyroid Disorder Additional Past Medical History / Comment(s): shingles within last 5 years, "intermittent ankle swelling", AAA unsure of size, diverticular disease(had sx) , sleep apnea has cpap but does'nt use it. psoriases, "psoriatic arthritis", past fx's to lt armx2,lt hand,lt ankle all just casted. broken tail bone had sx. , past benign brain and ovarian tumors. 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 retroperiteneal bleed. History of Any Multi-Drug Resistant Organisms: None Reported Past Surgical History: Bowel Resection, Hysterectomy, Tonsillectomy Additional Past Surgical History / Comment(s): brain and ovarian tumors removed both benign, rt hip replacements x4, nena cataracts,"rt eye sx for ?hole", multiple skin cancer lesions removed.,lt shoulder spurs removed, nena carpal tunnel. "approx 2002 after hip sx had staph infection but never told if it was mrsa or not" Past Anesthesia/Blood Transfusion Reactions: Blood Transfusion Reaction Additional Past Anesthesia/Blood Transfusion Reaction / Comment(s): Patient on 10/05/2016 09/30/2016 had elevated temperatures after blood transfusion and nausea. Past Psychological History: No Psychological Hx Reported Additional Psychological History / Comment(s): pt is ,was a farmers and now paints/artist and teacher. lives alone in her own home that has 2 [address]. no pets, no homecare services recieved. has a cane/walker/cpap. Smoking Status: Former smoker Past Alcohol Use History: Occasional Additional Past Alcohol Use History / Comment(s): started smoking age 13(1949) , quit 1974, smoked 1/2 ppd. Past Drug Use History: None Reported - Past Family History Father Family Medical History: Diabetes Mellitus, Myocardial Infarction (ND) Additional Family Medical History / Comment(s): embollism- age 79 Mother Family Medical History: Diabetes Mellitus, Myocardial Infarction (ND) Additional Family Medical History / Comment(s): age 74 Medications and Allergies Home Medications Medication Instructions Recorded Confirmed Type Cholecalciferol [Vitamin D3] 1,000 unit PO DAILY 09/16/16 10/06/16 History Levothyroxine Sodium [Synthroid] 175 mcg PO DAILY 09/16/16 10/06/16 History Magnesium 200 mg PO DAILY 09/16/16 10/06/16 History Mead-3 Fatty Acids [Mead-3] 1 cap PO DAILY 09/16/16 10/06/16 History amLODIPine [Norvasc] 2.5 mg PO DAILY 09/16/16 10/06/16 History Allergies Allergy/AdvReac Type Severity Reaction Status Date / Time No Known Allergies Allergy Verified 10/06/16 22:34 Physical Exam Vitals: Vital Signs Temp Pulse Resp BP Pulse Ox 10/07/16 08:15 96.9 F L 85 16 126/74 99 10/07/16 03:18 94 10/07/16 03:16 97.1 F L 94 16 133/74 94 L 10/07/16 00:00 85 16 10/06/16 23:48 97.2 F L 85 16 132/63 96 10/06/16 21:19 97.0 F L 82 16 129/60 97 Intake and Output 10/06/16 10/07/16 10/07/16 22:59 06:59 14:59 Output Total 250 600 Balance -250 -600 Output: Urine 250 600 Other: Voiding Method Bedside Commode Weight 76 kg 77.7 kg PHYSICAL EXAMINATION: HEENT: Head is atraumatic, normocephalic. Pupils equal, round. Neck is supple. There is no elevated jugular venous pressure. HEART EXAMINATION: S1 and S2 systolic murmur is heard. CHEST EXAMINATION: Lungs are clear with diminished air entry to bilateral bases. ABDOMEN: [ Soft, nontender. Bowel sounds are heard. Significant hematoma at the left abdominal area, left flank, considerable ecchymosis around to her lower back area. EXTREMITIES: 2+ peripheral pulses with no evidence of peripheral edema and no calf tenderness noted. NEUROLOGIC [patient is awake, alert and oriented -3.] . Results 10/07/16 04:26 10/07/16 04:26 Cardiac Enzymes 10/06/16 10/07/16 Range/Units 22:16 04:26 Troponin I 0.562 H* 0.311 H* (0.000-0.034) ng/mL Coagulation 10/07/16 Range/Units 04:26 PT 10.2 (9.0-12.0) sec APTT 22.7 (22.0-30.0) sec CBC 10/07/16 Range/Units 04:26 WBC 3.3 L (3.8-10.6) k/uL RBC 2.59 L (3.80-5.40) m/uL Hgb 7.9 L (11.4-16.0) gm/dL Hct 24.9 L (34.0-46.0) % Plt Count 148 L (150-450) k/uL Comprehensive Metabolic Panel 10/07/16 Range/Units 04:26 Sodium 142 (137-145) mmol/L Potassium 3.7 (3.5-5.1) mmol/L Chloride 110 H (98-107) mmol/L Carbon Dioxide 28 (22-30) mmol/L BUN 22 H (7-17) mg/dL Creatinine 1.01 (0.52-1.04) mg/dL Glucose 117 H (74-99) mg/dL Calcium 8.1 L (8.4-10.2) mg/dL Current Medications Generic Name Dose Route Start Last Admin Trade Name Freq PRN Reason Stop Dose Admin Acetaminophen 650 mg 10/06/16 21:34 Tylenol Tab PO Q6HR PRN Fever and/ or Mild Pain Aspirin 81 mg 10/07/16 09:00 Aspirin PO DAILY [facility] Atorvastatin Calcium 10 mg 10/07/16 21:00 Lipitor PO HS IVÁN Sodium Chloride 1,000 mls @ 75 mls/hr 10/06/16 21:45 10/06/16 23:52 Saline 0.9% IV 75 mls/hr .[id number] IVÁN Administration Nitroglycerin 1 inch 10/07/16 00:00 10/07/16 06:32 Nitro-Bid Oint TOPICAL 1 inch Q6HR IVÁN Administration Intake and Output 10/06/16 10/07/16 10/07/16 22:59 06:59 14:59 Output Total 250 600 Balance -250 -600 Output: Urine 250 600 Other: Voiding Method Bedside Commode Weight 76 kg 77.7 kg 10/07/16 04:26 10/07/16 04:26 EKG Interpretations (text) EKG shows normal sinus rhythm with a left bundle-branch block pattern and nonspecific ST-T wave changes Assessment and Plan Plan: Assessment and plan #1 symptoms of weakness with associated shortness of breath and mild abdominal discomfort, likely secondary to anemia. #2 abnormal troponins, patient denies having any chest discomfort. Could be secondary to oxygen supply and demand mismatch. Recent echo performed last month revealed a normal left ventricular systolic function. #3 anemia with recent significant left abdominal wall hematoma requiring multiple blood transfusions #4 temperature of 102 at [facility]. Blood cultures pending #5 hypertension history #6 hypothyroidism #7 history of brain tumor more than 15 years ago. Plan Because of the abnormal troponins, we will repeat an echocardiogram with Doppler study. We will discontinue the patient's Nitropaste. Further recommendations to follow. DNP note has been reviewed, I agree with a documented findings and plan of care. Patient was seen and examined.
[2016-10-07] MEDS ORDERED: Potassium Replacement Protocol 1 EACH MISC MISCELLANE PRN (10:02)
[2016-10-07] MEDS ORDERED: Magnesium Replacement Protocol 1 EACH MISC MISCELLANE PRN (10:02)
--- NOTE | 2016-10-07 10:53 | ECHOF ---
Referral Reason:elevated tropinin MEASUREMENTS -------- HEIGHT: 162.6 cm WEIGHT: 77.6 kg BP: 117/53 IVSd: 1.2 cm (0.6 - 1.1) LVIDd: 3.5 cm (3.9 - 5.3) LVPWd: 1.5 cm (0.6 - 1.1) IVSs: 1.9 cm LVIDs: 1.2 cm LVPWs: 1.2 cm LAESV Index (A-L): 39.53 ml/m Ao Diam: 3.0 cm (2.0 - 3.7) AV Cusp: 1.2 cm (1.5 - 2.6) LA Diam: 2.2 cm (2.7 - 3.8) MV EXCURSION: 17.007 mm (> 18.000) MV EF SLOPE: 171 mm/s (70 - 150) EPSS: 0.7 cm MV E Shady: 1.12 m/s MV DecT: 184 ms MV A Shady: 0.94 m/s MV E/A Ratio: 1.20 AV maxP.93 mmHg AV meanP.30 mmHg RAP: 5.00 mmHg RVSP: 30.43 mmHg FINDINGS -------- Sinus rhythm. This was a technically good study. There is mild concentric left ventricular hypertrophy. Overall left ventricular systolic function is normal with, an EF between 55 - 60 %. The right ventricle is normal in size and function. LA is moderately dilated 34-39 ml/m2 The right atrium is normal in size. The aortic valve was not well visualized. Aortic valve is trileaflet and is mildly thickened. There is mild aortic stenosis present. Peak/mean gradient across the Aortic Valve is 29.93mmHg / 14.30mmHg. The mitral valve leaflets are mildly thickened. Moderate mitral annular calcification present. Mild mitral regurgitation is present. Mild tricuspid regurgitation present. The right ventricular systolic pressure, as measured by Doppler, is 30.43mmHg. Pulmonic valve appears structurally normal. The aortic root size is normal. Normal inferior vena cava with normal inspiratory collapse consistent with estimated right atrial pressure of 5 mmHg. The pericardium is normal. CONCLUSIONS -------- 1. Sinus rhythm. 2. There is mild aortic stenosis present. 3. Peak/mean gradient across the Aortic Valve is 29.93mmHg / 14.30mmHg. 4. The mitral valve leaflets are mildly thickened. 5. Mild mitral regurgitation is present. 6. Mild tricuspid regurgitation present. 7. The right ventricular systolic pressure, as measured by Doppler, is 30.43mmHg. 8. Pulmonic valve appears structurally normal. 9. The aortic root size is normal. 10. Normal inferior vena cava with normal inspiratory collapse consistent with estimated right atrial pressure of 5 mmHg. 11. The pericardium is normal. 12. This was a technically good study. 13. There is mild concentric left ventricular hypertrophy. 14. Overall left ventricular systolic function is normal with, an EF between 55 - 60 %. 15. The right ventricle is normal in size and function. 16. LA is moderately dilated 34-39 ml/m2 17. The right atrium is normal in size. 18. The aortic valve was not well visualized. 19. Aortic valve is trileaflet and is mildly thickened. V[employer] SEAMAN: Marina Heller RDCS
[2016-10-07] MEDS ORDERED: POTASSIUM CHLORIDE ER 20 MEQ TAB.ER PO SCH (11:00)
[2016-10-07] MEDS: MAGNESIUM SULFATE-D5W PMX 1 GM in DEXTROSE/WATER 1 100ML.BAG IVPB SCH ×2 (12:12→14:33)
[2016-10-07] MEDS: SODIUM CHLORIDE 0.9% 1,000 ML IV SCH (14:40)
[2016-10-07 16:07] VITALS: BP 98/57; PULSE 75; TEMP 97.8
--- NOTE | 2016-10-07 16:43 | P.HPIM ---
History of Present Illness 81-year-old female is admitted to the hospital because of suspicion of recurrent bleed in the retroperitoneum. Patient was seen in [facility] for low hemoglobin which was evident on regular blood testing. Patient received 1 unit of transfusion patient hemoglobin was 8.1 before transfusion of around 7.9. Patient was febrile along with transfusion patient temperature went up to 102. Patient is afebrile at this point of time patient does not have any signs or symptoms of sepsis. Patient was admitted a about 3 weeks ago to this hospital for chest pain at that time patient was on IV heparin which led to hematoma on the left side of the abdominal wall. Patient was subsequently transferred to [facility]. At that time no CAT scan was obtained because she received quite a bit of contrast day before. Patient was monitored in [facility] says subsequently discharged. Since her discharge patient received total of 3 units of blood. Patient is not on any anticoagulation patient doesn't take aspirin either at home. Because of the low hemoglobin patient was seen in [facility] [place] monitor blood transfusion. Patient denied any chest pain but does have minimal elevation of troponin up to 0.5 secondary to supply demand mismatch. Repeat echocardiogram was obtained today by cardiology which did not show any significant abnormality. Did discuss the case with general surgery. Although not 100% sure that patient is actively bleeding at this time because of the grease discoloration on the CAT scan there is a concern that the patient may have active bleeding into the retroperitoneum because of his surgery recommending transfer back to [facility] for possibility of embolization of the culprit vessel if at all needed. Patient at this point of time denied any dizziness denied any lightheadedness although patient had these episodes since her discharge from [facility]. After discussion with general surgery plan is to transfer her to [facility]. Patient was having generalized weakness and shortness of breath secondary to severe anemia Review of Systems REVIEW OF SYSTEMS: CONSTITUTIONAL: No fever, no malaise, no fatigue. HEENT: No recent visual problems or hearing problems. Denied any sore throat. CARDIOVASCULAR: No chest pain, orthopnea, PND, no palpitations, no syncope. PULMONARY: No shortness of breath, no cough, no hemoptysis. GASTROINTESTINAL: No diarrhea, no nausea, no vomiting, no abdominal pain. Normoactive bowel sounds. NEUROLOGICAL: No headaches, no weakness, no numbness. HEMATOLOGICAL: Denies any bleeding or petechiae. GENITOURINARY: Denies any burning micturition, frequency, or urgency. MUSCULOSKELETAL/RHEUMATOLOGICAL: Denies any joint pain, swelling, or any muscle pain. ENDOCRINE: Denies any polyuria or polydipsia. The rest of the 14-point review of systems is negative. Past Medical History Past Medical History: Cancer, GERD/Reflux, Hyperlipidemia, Hypertension, Sleep Apnea/CPAP/BIPAP, Thyroid Disorder Additional Past Medical History / Comment(s): shingles within last 5 years, "intermittent ankle swelling", AAA unsure of size, diverticular disease(had sx) , sleep apnea has cpap but does'nt use it. psoriases, "psoriatic arthritis", past fx's to lt armx2,lt hand,lt ankle all just casted. broken tail bone had sx. , past benign brain and ovarian tumors. 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 retroperiteneal bleed. History of Any Multi-Drug Resistant Organisms: None Reported Past Surgical History: Bowel Resection, Hysterectomy, Tonsillectomy Additional Past Surgical History / Comment(s): brain and ovarian tumors removed both benign, rt hip replacements x4, nena cataracts,"rt eye sx for ?hole", multiple skin cancer lesions removed.,lt shoulder spurs removed, nena carpal tunnel. "approx 2002 after hip sx had staph infection but never told if it was mrsa or not" Past Anesthesia/Blood Transfusion Reactions: Blood Transfusion Reaction Additional Past Anesthesia/Blood Transfusion Reaction / Comment(s): Patient on 10/05/2016 09/30/2016 had elevated temperatures after blood transfusion and nausea. Past Psychological History: No Psychological Hx Reported Additional Psychological History / Comment(s): pt is ,was a farmers and now paints/artist and teacher. lives alone in her own home that has 2 [address]. no pets, no homecare services recieved. has a cane/walker/cpap. Smoking Status: Former smoker Past Alcohol Use History: Occasional Additional Past Alcohol Use History / Comment(s): started smoking age 13(1949) , quit 1974, smoked 1/2 ppd. Past Drug Use History: None Reported - Past Family History Father Family Medical History: Diabetes Mellitus, Myocardial Infarction ([place]) Additional Family Medical History / Comment(s): embollism- age 79 Mother Family Medical History: Diabetes Mellitus, Myocardial Infarction ([place]) Additional Family Medical History / Comment(s): age 74 Medications and Allergies Home Medications Medication Instructions Recorded Confirmed Type Cholecalciferol [Vitamin D3] 1,000 unit PO DAILY 09/16/16 10/06/16 History Levothyroxine Sodium [Synthroid] 175 mcg PO DAILY 09/16/16 10/06/16 History Magnesium 200 mg PO DAILY 09/16/16 10/06/16 History [place]-3 Fatty Acids [[place]-3] 1 cap PO DAILY 09/16/16 10/06/16 History amLODIPine [Norvasc] 2.5 mg PO DAILY 09/16/16 10/06/16 History Allergies Allergy/AdvReac Type Severity Reaction Status Date / Time No Known Allergies Allergy Verified 10/06/16 22:34 Physical Exam Vitals: Vital Signs Temp Pulse Resp BP Pulse Ox 10/07/16 16:00 97.8 F 75 16 98/57 96 10/07/16 12:22 76 16 96/51 95 10/07/16 12:10 16 10/07/16 08:15 96.9 F L 85 16 126/74 99 10/07/16 03:18 94 10/07/16 03:16 97.1 F L 94 16 133/74 94 L 10/07/16 00:00 85 16 10/06/16 23:48 97.2 F L 85 16 132/63 96 10/06/16 21:19 97.0 F L 82 16 129/60 97 Intake and Output 10/07/16 10/07/16 10/07/16 06:59 14:59 22:59 Intake Total 920 Output Total 600 300 Balance -600 620 Intake: IV 600 Sodium Chloride 0.9% 1, 600 000 ml @ 75 mls/hr IV . [id number] IVÁN Rx#:[id number] Intake, IV Titration 200 Amount Magnesium Sulfate-D5w Pmx 200 1 gm In Dextrose/Water 1 100ml.bag @ 100 mls/hr IVPB Q1H IVÁN Rx#: [id number] Oral 120 Output: Urine 600 300 Other: Voiding Method Bedside Commode Bedside Commode Bedside Commode Weight 77.7 kg PHYSICAL EXAMINATION: GENERAL: The patient is alert and oriented x3, not in any acute distress. Well developed, well nourished. HEENT: Pupils are round and equally reacting to light. EOMI. No scleral icterus. Patient does have conjunctival pallor. Normocephalic, atraumatic. No pharyngeal erythema. No thyromegaly. CARDIOVASCULAR: S1 and S2 present. No murmurs, rubs, or gallops. PULMONARY: Chest is clear to auscultation, no wheezing or crackles. ABDOMEN: Soft, nontender, nondistended, normoactive bowel sounds. No palpable organomegaly. MUSCULOSKELETAL: No joint swelling or deformity. EXTREMITIES: No cyanosis, clubbing, or pedal edema. NEUROLOGICAL: Gross neurological examination did not reveal any focal deficits. SKIN: No rashes. Results CBC & Chem 7: 10/07/16 04:26 10/07/16 04:26 Labs: Abnormal Lab Results - Last 24 Hours (Table) 10/06/16 10/07/16 10/07/16 Range/Units 22:16 04:26 04:26 WBC 3.3 L (3.8-10.6) k/uL RBC 2.59 L (3.80-5.40) m/uL Hgb 7.9 L (11.4-16.0) gm/dL Hct 24.9 L (34.0-46.0) % RDW 17.6 H (11.5-15.5) % Plt Count 148 L (150-450) k/uL Lymphocytes # 0.8 L (1.0-4.8) k/uL Chloride 110 H (98-107) mmol/L BUN 22 H (7-17) mg/dL Glucose 117 H (74-99) mg/dL Calcium 8.1 L (8.4-10.2) mg/dL Troponin I 0.562 H* (0.000-0.034) ng/mL 10/07/16 Range/Units 04:26 WBC (3.8-10.6) k/uL RBC (3.80-5.40) m/uL Hgb (11.4-16.0) gm/dL Hct (34.0-46.0) % RDW (11.5-15.5) % Plt Count (150-450) k/uL Lymphocytes # (1.0-4.8) k/uL Chloride (98-107) mmol/L BUN (7-17) mg/dL Glucose (74-99) mg/dL Calcium (8.4-10.2) mg/dL Troponin I 0.311 H* (0.000-0.034) ng/mL Thrombosis Risk Factor Assmnt - Choose All That Apply Any of the Below Risk Factors Present?: Yes Each Factor Represents 1 point: Obesity (BMI >25) Each Risk Factor Represents 3 Points: Age 75 years or older Thrombosis Risk Factor Assessment Total Risk Factor Score: 4 Thrombosis Risk Factor Assessment Level: Moderate Risk Assessment and Plan Plan: Assessment and plan #1 symptoms of weakness with associated shortness of breath and mild abdominal discomfort, likely secondary to anemia.Patient probably acute blood loss anemia from retroperitoneal bleed. Aspirin will be discontinued. Will be transferred to [facility] with concerns of recurrent bleed. Patient received total of 3 units since her discharge from [facility]. #2 abnormal troponins, patient denies having any chest discomfort. Secondary to supply demand mismatch. Echocardiogram essentially within normal limits without any wall motion abnormality this. #3 anemia with recent significant left abdominal wall hematoma requiring multiple blood transfusions #4 temperature of 102 at [place]. Due to blood transfusion. Blood cultures pending #5 hypothyroidism Antiplatelet therapy is being discontinued at this time. Patient is not on antibiotic therapy at home.
--- NOTE | 2016-10-07 16:44 | P.DS ---
Providers Date of admission: 10/06/16 21:03 Attending physician: Derrick Dimas MD Consults: 10/06/16 21:35 Consult Physician Urgent Consulting Provider: Jerson Cameron Consult Reason/Comments: elevated troponin Do you want consulting provider notified?: Yes, Notify in am 10/07/16 12:43 Consult Physician Routine Consulting Provider: Marcia Orozco Consult Reason/Comments: abdominal hematoma/CT from [place] Do you want consulting provider notified?: Yes 10/07/16 12:50 Consult Physician Routine Consulting Provider: Ugo Spring Consult Reason/Comments: Anemia/hematoma Do you want consulting provider notified?: Yes Primary care physician: Stated None Hospital Course: Please refer to HPI Plan - Discharge Summary New Discharge Prescriptions: Discontinued amLODIPine [Norvasc] 2.5 mg PO DAILY No Action Cholecalciferol [Vitamin D3] 1,000 unit PO DAILY [place]-3 Fatty Acids [[place]-3] 1 cap PO DAILY Magnesium 200 mg PO DAILY Levothyroxine Sodium [Synthroid] 175 mcg PO DAILY Discharge Medication List Cholecalciferol [Vitamin D3] 1,000 unit PO DAILY 09/16/16 [History] Levothyroxine Sodium [Synthroid] 175 mcg PO DAILY 09/16/16 [History] Magnesium 200 mg PO DAILY 09/16/16 [History] [place]-3 Fatty Acids [[place]-3] 1 cap PO DAILY 09/16/16 [History] Discharge Disposition: OTHER INSTITUTION NOT DEFINED
[2016-10-07 17:17] LABS: Appearance,Urine Cloudy (Clear); Bacteria,Urine Rare /hpf; Bilirubin,Urine Negative (Negative); Glucose,Urine (UA) Negative (Negative); Ketones,Urine Negative (Negative); Leukocyte Esterase,Urine Negative (Negative); Mucus,Urine Occasional /hpf; Nitrite,Urine Negative (Negative); Particle Count 16887; Protein,Urine 1+ (Negative); RBC,Urine 3 /hpf (0-5); Specific Gravity,Urine 1.011 (1.001-1.035); Squamous Epithelial Cell,Urine 1 /hpf (0-4); UA Billing (MACRO vs. MICRO) MICRO; Urobilinogen,Urine <2.0 mg/dL (<2.0); WBC,Urine 4 /hpf (0-5)
[2016-10-07] MEDS ORDERED: ATORVASTATIN 10 MG TAB PO SCH (21:00)
[2016-10-08] MEDS ORDERED: LEVOTHYROXINE 100 MCG TAB PO SCH (06:30)
[2016-10-08] MEDS ORDERED: LEVOTHYROXINE 75 MCG TAB PO SCH (06:30)
== END 2016-10-07 20:27 | disposition short-term general hospital (02) | DRG 811 ==
LOC: 6SEL 21:03
PROVIDERS: ADMIT Internal Medicine; ATTEND Internal Medicine
DX: D62 Acute posthemorrhagic anemia (principal); K66.1 Hemoperitoneum; I34.0 Nonrheumatic mitral (valve) insufficiency; I35.0 Nonrheumatic aortic (valve) stenosis; I44.7 Left bundle-branch block, unspecified; L40.50 Arthropathic psoriasis, unspecified; I10 Essential (primary) hypertension; E03.9 Hypothyroidism, unspecified; E78.5 Hyperlipidemia, unspecified; G47.30 Sleep apnea, unspecified; K21.9 Gastro-esophageal reflux disease without esophagitis; S30.1XXA Contusion of abdominal wall, initial encounter; I71.4 Abdominal aortic aneurysm, without rupture; Z85.828 Personal history of other malignant neoplasm of skin; Z86.19 Personal history of other infectious and parasitic diseases; Z86.011 Personal history of benign neoplasm of the brain; Z96.643 Presence of artificial hip joint, bilateral; Z98.42 Cataract extraction status, left eye; Z98.41 Cataract extraction status, right eye; Z87.891 Personal history of nicotine dependence
CPT/HCPCS: 80048; 81001; 83735; 84100; 84484; 85025; 85610; 85730; 87086; 93306